=== PATIENT | male | born 1945 | race Caucasian/White ===

== ENCOUNTER 2021-08-20 15:42 | Emergency (ER) | payer MEDICARE, OTHER ==
[2021-08-20] MEDS ORDERED: Cephalexin 250 MG Cap ONE (16:30)
[2021-08-20] MEDS ORDERED: Diphtheria/Tetanus Toxoids,Adult (Td) 0.5 ML SDV IM ONE (16:35)
--- NOTE | 2021-08-20 16:38 | EDM.PDOC ---
ED HPI GENERAL MEDICAL PROBLEM - General Chief Complaint: Laceration Stated Complaint: FISH HOOK Time Seen by Provider: 08/20/21 15:58 Source of Information: Reports: Patient History Limitations: Reports: No Limitations - History of Present Illness INITIAL COMMENTS - FREE TEXT/NARRATIVE: 76-year-old male presents to the ED complaining of a trouble hook embedded in his left thumb on the distal anterior surface. Patient has no other complaints. Patient is unable to remember the last time he had a tetanus injection. Onset: Today, Sudden Duration: Hour(s): Location: Reports: Upper Extremity, Left (Thumb) Quality: Reports: Sharp Severity: Mild Improves with: Reports: None Worsens with: Reports: None Context: Reports: Trauma Associated Symptoms: Reports: No Other Symptoms - Related Data Allergies Allergy/AdvReac Type Severity Reaction Status Date / Time No Known Allergies Allergy Verified 08/20/21 16:05 Past Medical History HEENT History: Reports: Impaired Vision Cardiovascular History: Reports: Afib, High Cholesterol, Hypertension, [place] Respiratory History: Reports: COPD Endocrine/Metabolic History: Reports: Diabetes, Type II - Past Surgical History Cardiovascular Surgical History: Reports: Other (See Below) Other Cardiovascular Surgeries/Procedures: septal myectomy ED ROS GENERAL - Review of Systems Review Of Systems: See Below Reason Not Obtained: Not relevant Constitutional: Reports: No Symptoms HEENT: Reports: No Symptoms Respiratory: Reports: No Symptoms Cardiovascular: Reports: No Symptoms Endocrine: Reports: No Symptoms GI/Abdominal: Reports: No Symptoms : Reports: No Symptoms Musculoskeletal: Reports: No Symptoms Skin: Reports: No Symptoms Neurological: Reports: No Symptoms Psychiatric: Reports: No Symptoms Hematologic/Lymphatic: Reports: No Symptoms Immunologic: Reports: No Symptoms ED EXAM, SKIN/RASH Exam: See Below Text/Narrative:: ABC intact, patient speaking in full sentences, alert and oriented x3 GCS 4 5 6 no apparent distress. Focused exam limited to left hand: 1 hook embedded in the anterior distal thumb of a trouble hook. No signs of infection bleeding is controlled. Exam Limited By: No Limitations Neurological: Alert, Oriented, Normal Cognition Skin: Warm, Dry, Intact, Normal Color Location, Skin: Upper Extremity, Left (Left thumb distal anterior) Associated features: No: Warmth, Tenderness, Swelling, Inflammation ED SKIN PROCEDURES - Foreign Body Removal Indication:: Aceitunas Consent Obtained:: Patient Performing Doctor:: Hill,Beto S Foreign Body Other Location Comment:: Distal anterior thumb left hand Anesthesia Type: Other (see below) (Digital block) Complications:: No Comments:: Nonembedded hooks were removed with bolt cutters, embedded hook was pushed through to the exterior where it was clipped and the hook was able to be pulled back through Course - Vital Signs Last Recorded V/S: Last Vital Signs Temp 98.3 F 08/20/21 16:01 Pulse 84 08/20/21 16:01 Resp 16 08/20/21 16:01 BP 124/61 08/20/21 16:01 Pulse Ox 95 08/20/21 16:01 Departure - Departure Time of Disposition: 16:45 Disposition: Home, Self-Care 01 Condition: Good Clinical Impression: Removal of foreign body - Discharge Information *PRESCRIPTION DRUG MONITORING PROGRAM REVIEWED*: No *COPY OF PRESCRIPTION DRUG MONITORING REPORT IN PATIENT RAMÓN: No Instructions: Puncture Wound, [id number] Referrals: PCP,None [Primary Care Provider] - Sepsis Event Note (ED) - Evaluation Sepsis Screening Result: No Definite Risk - Focused Exam Vital Signs: Vital Signs Temp Pulse Resp BP Pulse Ox 08/20/21 16:01 98.3 F 84 16 124/61 95 - Assessment/Plan Assessment:: Assessment impaled poli. Plan: ABC, history, exam, digital block, removal, wound care, tetanus shot, patient advised of symptoms to look out for if puncture wound becomes infected (heat, redness, pain) and to start antibiotic as prescribed if they appear. Patient discharged in stable condition all questions were answered patient a greed to treatment plan
== END 2021-08-20 16:40 | disposition home or self-care (01) ==
LOC: LB.ED 15:42
DX: S60.352A Superficial foreign body of left thumb, initial encounter (principal); E78.00 Pure hypercholesterolemia, unspecified; I48.91 Unspecified atrial fibrillation; I10 Essential (primary) hypertension; J44.9 Chronic obstructive pulmonary disease, unspecified; I25.2 Old myocardial infarction; E11.9 Type 2 diabetes mellitus without complications; Z23 Encounter for immunization; Z79.899 Other long term (current) drug therapy; W45.8XXA Other foreign body or object entering through skin, initial encounter
CPT/HCPCS: 90471; 90714; 99283; A9270-GY